=== PATIENT | male | born 2000 | race Caucasian/White ===

== ENCOUNTER 2021-08-10 14:41 | Emergency (ER) | payer SELFPAY ==
[~2021-08-10] VITALS: Ht 188 cm; Wt 128.4 kg
[2021-08-10 15:35] VITALS: BP 169/105
--- NOTE | 2021-08-10 16:01 | RAD ---
EXAMINATION: Right hand radiograph. VIEWS: 3 COMPARISON: None INDICATION:20 years, Male, right hand injury. FINDINGS: No acute fracture, dislocation or subluxation. No bone erosion or periosteal reaction. No soft tissue swelling. IMPRESSION: No acute osseous process. Electronically signed by: Chris Venegas MD (08/10/2021 3:59 PM) [facility]
[2021-08-10] MEDS ORDERED: SULF1TAB24 PO (16:35)
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
== END 2021-08-10 16:48 | disposition home or self-care (01) ==
LOC: ER 14:46
DX: S60.222A Contusion of left hand, initial encounter (principal); L03.114 Cellulitis of left upper limb; W23.0XXA Caught, crushed, jammed, or pinched between moving objects, initial encounter; Y93.89 Activity, other specified; Y92.89 Other specified places as the place of occurrence of the external cause; Y99.8 Other external cause status
CPT/HCPCS: 73130; 99283